=== PATIENT | female | born 1965 | race Hispanic/Latino ===

== ENCOUNTER → 2020-07-18 | Day surgery (SDC) | payer SELFPAY ==
[2020-07-17 13:34] VITALS: BMI 64.6
[~2020-07-18] MED LIST: Bupivacaine 0.25% HCL 30 ML VIAL ONE; Dexamethasone 20 MG/5 ML VIAL ONE; Fentanyl 100 MCG/2 ML VIAL ONE; HYDROcodone/Acetaminophen 5/325 mg Tablet ONE; HYDROmorphone 0.5 MG/0.5 ML SYRINGE ONE; HYDROmorphone 2 MG/ML VIAL SLOW IVP PRN; Lidocaine 1% PF 5 ML VIAL ONE; Lidocaine 1% w/Epinephrine 1:100K 20 ML VIAL ONE; Midazolam HCl 2 mg/2 ml Vial ONE; Morphine 4 MG/ML VIAL ONE; Ondansetron HCl/PF 4 MG/2 ML Vial IVP PRN; Ondansetron PF 4 MG/2 ML Vial ONE; PROPOFOL 200 MG/20 ML VIAL ONE; Promethazine HCl 25 MG/ML VIAL IM PRN; Promethazine HCl 25 MG/ML VIAL SLOW IVP PRN; Rocuronium Bromide 10 MG/ML (10ML VIAL) ONE; Rocuronium Bromide 50 MG/5 ML VIAL ONE; SUGAMMADEX SODIUM 200 MG/2 ML VIAL ONE; SUGAMMADEX SODIUM 500 MG/5 ML VIAL ONE; Succinylcholine Chloride 20 MG/ML 10 ml SYRINGE FS ONE
--- NOTE | 2020-07-18 17:54 | OP ---
DATE OF PROCEDURE: 07/18/2020 PREOPERATIVE DIAGNOSIS: Incisional hernia, large. POSTOPERATIVE DIAGNOSIS: Incisional hernia, large. PROCEDURE PERFORMED: [facility] laparoscopic incisional hernia repair with mesh, 10 x [address] ANESTHESIA: General. ESTIMATED BLOOD LOSS: Minimal. COMPLICATIONS: None. SPECIMENS: None. FINDINGS: There were 3 hernia defects in continuity in the upper midline. DESCRIPTION OF PROCEDURE: The patient was taken to the operating room and laid supine on the operating room table. After general anesthetic was obtained, a Trevizo was placed. The abdomen was prepped and draped in a sterile fashion. Left subcostal 5-mm Optiview trocar placed in usual fashion and high-flow pneumoperitoneum was obtained. Left upper quadrant and right upper quadrant 8-mm robot ports were placed. All ports were docked to the robot. The patient had transverse colon and significant amount of omentum in the hernia. This was able to be bluntly slowly dissected out of the hernia defect. Care was taken to avoid injury to the colon or intra-abdominal contents. After significant amount of time of blunt and sharp dissection, all the contents in the hernia were able to be reduced. The peritoneum was taken down, exposing the posterior fascia. A #1 V-Loc suture was used to close the fascial defects in a continuous fashion. There were 3 defects in line in the upper midline. These were able to be closed completely. A [address] mesh was marked and placed into the abdominal cavity. The exposed mesh part was placed up against the posterior fascia. The nonadherent barrier part was left down and exposed to the abdominal viscera. The needle from the V-Loc was used to hold the mesh up against the posterior abdominal wall, centered over the previous repair. A 2-0 V-Loc suture was then run in a circumferential fashion around the edge of the mesh, holding it to the posterior fascia. All needles were removed from the abdomen and accounted for. All port sites were infiltrated using local anesthetic. All ports were removed under camera visualization. Pneumoperitoneum was let down. PDS was used to close the fascial defect below and the subxiphoid location. All incisions were irrigated and closed using 4-0 Monocryl and Dermabond. The patient was sent to Recovery in stable condition. All instrument counts, needle counts, and lap counts were correct. Job ID: [id number]
== END ==
LOC: SDC 06:01
PROVIDERS: ATTEND Surgery
PROC: 0WUF4JZ Supplement Abdominal Wall with Synthetic Substitute, Percutaneous Endoscopic Approach (ICD-10-PCS; principal; 2020-07-18)
DX: K43.2 Incisional hernia without obstruction or gangrene (principal)
CPT/HCPCS: J0690; J1100; J1170; J2250; J2270; J2405; J2704; J3010; S0020

== ENCOUNTER 2021-04-25 20:01 | Inpatient (IN) | payer SELFPAY ==
[2021-04-25 20:38] LABS: #Lymphocytes 0.9 thou/uL (1.20-3.40); #Monocytes 0.3 thou/uL (0.11-0.59); #Neutrophils 7.2 thou/uL (1.40-6.50); %Lymphocytes 10.2 % (21.0-51.0); %Monocytes 4.1 % (0.0-10.0); %Neutrophils 85.7 % (42.0-75.0); Mean Corpuscular HGB CONC 34.6 g/dL (32.0-36.0); Mean Corpuscular Hemoglobin 29.9 pg (27.0-31.0); Mean Corpuscular Volume 86.3 fL (78.0-98.0); Platelet Count 256 thou/uL (130-400); RBC Distribution Width 13.5 % (11.5-14.5); Red Blood Cell (RBC) Count 5.01 mill/uL (4.20-5.40); White Blood Cell (WBC) Count 8.4 thou/uL (4.8-10.8)
[2021-04-25 21:03] LABS: ALT (SGPT) 53 U/L (8-55); AST (SGOT) 74 U/L (5-34); Albumin 3.7 g/dL (3.5-5.0); Alkaline Phosphatase 104 U/L (40-110); Anion Gap 15 mmol/L (10-20); BUN (Urea Nitrogen) 7 mg/dL (9.8-20.1); Bilirubin, Total 0.4 mg/dL (0.2-1.2); Calc. Creatinine Clearance 0 mL/min (70-130); Calcium 8.8 mg/dL (7.8-10.44); Carbon Dioxide 26 mmol/L (22-29); Chloride 97 mmol/L (98-107); Globulin 4.3 g/dL (2.4-3.5); Glucose 193 mg/dL (70-105); Potassium 4.7 mmol/L (3.5-5.1); Sodium 133 mmol/L (136-145)
[2021-04-25] MEDS ORDERED: cefTRIAXone\\ROCEPHIN 2 GM VIAL ONE (22:28)
[2021-04-25] MEDS ORDERED: Acetaminophen 500 MG TAB ONE (22:28)
[2021-04-25] MEDS ORDERED: Azithromycin 500 MG VIAL ONE (23:02)
[2021-04-25 23:48] LABS: SARS-CoV-2 NAA Rapid Test DETECTED (NotDetected)
[2021-04-26] MEDS ORDERED: Ondansetron PF 4 MG/2 ML Vial IVP PRN (01:04)
[2021-04-26] MEDS ORDERED: Enoxaparin Sodium 40 MG/0.4 ML SYRINGE SC SCH ×2 (01:30→09:00)
[2021-04-26] MEDS ORDERED: Dexamethasone 4 mg/ml Vial SLOW IVP SCH (01:30)
[2021-04-26] MEDS ORDERED: Enoxaparin Sodium 100 MG/ML SYRINGE SC SCH (01:30)
[2021-04-26 05:07] LABS: #Lymphocytes 1.1 thou/uL (1.20-3.40); #Monocytes 0.3 thou/uL (0.11-0.59); #Neutrophils 8.8 thou/uL (1.40-6.50); %Basophils 0.1 % (0.0-1.0); %Lymphocytes 10.9 % (21.0-51.0); %Monocytes 3.3 % (0.0-10.0); %Neutrophils 85.7 % (42.0-75.0); Hemoglobin 13.5 g/dL (12.0-16.0); Mean Corpuscular HGB CONC 33.4 g/dL (32.0-36.0); Mean Corpuscular Hemoglobin 28.9 pg (27.0-31.0); Mean Corpuscular Volume 86.5 fL (78.0-98.0); Mean Platelet Volume 7.2 fL (7.4-10.4); Platelet Count 266 thou/uL (130-400); RBC Distribution Width 13.4 % (11.5-14.5); Red Blood Cell (RBC) Count 4.67 mill/uL (4.20-5.40); White Blood Cell (WBC) Count 10.3 thou/uL (4.8-10.8)
[2021-04-26 05:21] LABS: Hemoglobin A1c 7.2 % (4.0-6.0)
[2021-04-26 05:35] LABS: ALT (SGPT) 51 U/L (8-55); AST (SGOT) 68 U/L (5-34); Albumin 3.5 g/dL (3.5-5.0); Alkaline Phosphatase 102 U/L (40-110); Anion Gap 13 mmol/L (10-20); BUN (Urea Nitrogen) 8 mg/dL (9.8-20.1); Bilirubin, Direct 0.2 mg/dL (0.1-0.3); Bilirubin, Total 0.3 mg/dL (0.2-1.2); CRP (Inflammatory) 9.89 mg/dL (= or < 0.5); Calc. Creatinine Clearance 185 mL/min (70-130); Calcium 8.7 mg/dL (7.8-10.44); Carbon Dioxide 27 mmol/L (22-29); Chloride 99 mmol/L (98-107); Glucose 237 mg/dL (70-105); Potassium 4.5 mmol/L (3.5-5.1); Protein, Total 7.6 g/dL (6.0-8.3); Sodium 134 mmol/L (136-145)
[2021-04-26] MEDS ORDERED: Dextrose 5% in Water 1,000 ML IV PRN (06:45)
[2021-04-26] MEDS ORDERED: Dextrose 50% Abboject 50 ML SYRINGE SLOW IVP PRN (06:45)
[2021-04-26] MEDS: Ascorbic Acid 500 mg Chewable Tablet PO SCH (07:36)
[2021-04-26] MEDS: Zinc Sulfate 220 MG CAP PO SCH (07:36)
[2021-04-26] MEDS: Dexamethasone 4 mg/ml Vial SLOW IVP SCH (07:36)
[2021-04-26] MEDS: HumaLOG 300 UNITS/3 ML VIAL SC PRN ×4 (07:38→21:15)
[2021-04-26] MEDS ORDERED: Famotidine 20 MG TAB PO SCH (09:00)
[2021-04-26] MEDS ORDERED: REMDESIVIR 200 MG in Sodium Chloride 0.9% 250 ML 210 ML IV SCH (10:15)
[2021-04-26] MEDS ORDERED: Iopamidol-370 76% 500 ML 1 ML ONE (10:15)
[2021-04-26] MEDS: Acetaminophen 325 MG TAB PO PRN ×2 (15:33→20:25)
[2021-04-26] MEDS: glipiZIDE 5 MG TAB PO SCH (15:33)
[2021-04-26] MEDS: Enoxaparin Sodium 40 MG/0.4 ML SYRINGE SC SCH (21:05)
[2021-04-26] MEDS: Cefepime 1 GM in Sodium Chloride 0.9% 100 ML IVPB SCH (23:21)
[2021-04-27] MEDS: Acetaminophen 325 MG TAB PO PRN ×3 (03:17→22:50)
[2021-04-27 05:54] LABS: ALT (SGPT) 45 U/L (8-55); AST (SGOT) 50 U/L (5-34); Albumin 3.3 g/dL (3.5-5.0); Alkaline Phosphatase 91 U/L (40-110); Anion Gap 15 mmol/L (10-20); BUN (Urea Nitrogen) 12 mg/dL (9.8-20.1); Bilirubin, Total 0.3 mg/dL (0.2-1.2); Calc. Creatinine Clearance 207 mL/min (70-130); Calcium 8.6 mg/dL (7.8-10.44); Carbon Dioxide 23 mmol/L (22-29); Chloride 101 mmol/L (98-107); Globulin 3.8 g/dL (2.4-3.5); Glucose 164 mg/dL (70-105); Potassium 4.2 mmol/L (3.5-5.1); Protein, Total 7.1 g/dL (6.0-8.3); Sodium 135 mmol/L (136-145)
[2021-04-27] MEDS: HumaLOG 300 UNITS/3 ML VIAL SC PRN ×2 (05:59→17:18)
[2021-04-27] MEDS: Ascorbic Acid 500 mg Chewable Tablet PO SCH (10:00)
[2021-04-27] MEDS: Dexamethasone 4 mg/ml Vial SLOW IVP SCH (10:00)
[2021-04-27] MEDS: Cholecalciferol (Vitamin D3) 400 UNITS TAB PO SCH (10:00)
[2021-04-27] MEDS: glipiZIDE 5 MG TAB PO SCH ×2 (10:00→16:00)
[2021-04-27] MEDS: Enoxaparin Sodium 40 MG/0.4 ML SYRINGE SC SCH ×2 (10:01→20:49)
[2021-04-27] MEDS: Cefepime 1 GM in Sodium Chloride 0.9% 100 ML IVPB SCH ×2 (10:01→22:37)
[2021-04-27] MEDS: Zinc Sulfate 220 MG CAP PO SCH (10:01)
[2021-04-27] MEDS: REMDESIVIR 100 MG in Sodium Chloride 0.9% 250 ML 230 ML IV SCH (11:03)
[2021-04-28 05:35] LABS: ALT (SGPT) 37 U/L (8-55); AST (SGOT) 30 U/L (5-34); Albumin 3.3 g/dL (3.5-5.0); Alkaline Phosphatase 98 U/L (40-110); Anion Gap 13 mmol/L (10-20); BUN (Urea Nitrogen) 16 mg/dL (9.8-20.1); Bilirubin, Total 0.4 mg/dL (0.2-1.2); CRP (Inflammatory) 2.95 mg/dL (= or < 0.5); Calc. Creatinine Clearance 202 mL/min (70-130); Calcium 8.9 mg/dL (7.8-10.44); Carbon Dioxide 27 mmol/L (22-29); Chloride 103 mmol/L (98-107); Globulin 3.8 g/dL (2.4-3.5); Glucose 161 mg/dL (70-105); Potassium 4.3 mmol/L (3.5-5.1); Protein, Total 7.1 g/dL (6.0-8.3); Sodium 139 mmol/L (136-145)
[2021-04-28] MEDS: HumaLOG 300 UNITS/3 ML VIAL SC PRN ×3 (06:15→20:38)
[2021-04-28] MEDS: Enoxaparin Sodium 40 MG/0.4 ML SYRINGE SC SCH ×2 (08:12→20:30)
[2021-04-28] MEDS: Cholecalciferol (Vitamin D3) 400 UNITS TAB PO SCH (08:12)
[2021-04-28] MEDS: glipiZIDE 5 MG TAB PO SCH ×2 (08:12→17:25)
[2021-04-28] MEDS: Ascorbic Acid 500 mg Chewable Tablet PO SCH (08:12)
[2021-04-28] MEDS: Zinc Sulfate 220 MG CAP PO SCH (08:13)
[2021-04-28] MEDS: Dexamethasone 4 mg/ml Vial SLOW IVP SCH (08:13)
[2021-04-28] MEDS: Acetaminophen 325 MG TAB PO PRN ×2 (10:48→18:20)
[2021-04-28] MEDS: Cefepime 1 GM in Sodium Chloride 0.9% 100 ML IVPB SCH (10:48)
[2021-04-28] MEDS: REMDESIVIR 100 MG in Sodium Chloride 0.9% 250 ML 230 ML IV SCH (11:31)
[2021-04-29] MEDS: Cefepime 1 GM in Sodium Chloride 0.9% 100 ML IVPB SCH ×3 (00:13→22:06)
[2021-04-29 04:59] LABS: ALT (SGPT) 29 U/L (8-55); AST (SGOT) 19 U/L (5-34); Albumin 3.2 g/dL (3.5-5.0); Alkaline Phosphatase 106 U/L (40-110); Anion Gap 13 mmol/L (10-20); BUN (Urea Nitrogen) 14 mg/dL (9.8-20.1); Bilirubin, Total 0.4 mg/dL (0.2-1.2); CRP (Inflammatory) 2.24 mg/dL (= or < 0.5); Calc. Creatinine Clearance 217 mL/min (70-130); Calcium 8.6 mg/dL (7.8-10.44); Carbon Dioxide 26 mmol/L (22-29); Chloride 104 mmol/L (98-107); Globulin 3.7 g/dL (2.4-3.5); Glucose 128 mg/dL (70-105); Potassium 3.8 mmol/L (3.5-5.1); Protein, Total 6.9 g/dL (6.0-8.3); Sodium 139 mmol/L (136-145)
[2021-04-29] MEDS: Enoxaparin Sodium 40 MG/0.4 ML SYRINGE SC SCH ×2 (07:26→22:00)
[2021-04-29] MEDS: Dexamethasone 4 mg/ml Vial SLOW IVP SCH ×2 (07:26→22:00)
[2021-04-29] MEDS: Zinc Sulfate 220 MG CAP PO SCH (07:27)
[2021-04-29] MEDS: glipiZIDE 5 MG TAB PO SCH ×2 (07:27→15:32)
[2021-04-29] MEDS: Ascorbic Acid 500 mg Chewable Tablet PO SCH (07:27)
[2021-04-29] MEDS: Cholecalciferol (Vitamin D3) 400 UNITS TAB PO SCH (07:27)
[2021-04-29] MEDS: Ivermectin 3 MG TAB PO SCH (10:50)
[2021-04-29] MEDS: REMDESIVIR 100 MG in Sodium Chloride 0.9% 250 ML 230 ML IV SCH (10:50)
[2021-04-29] MEDS: Acetaminophen 325 MG TAB PO PRN (15:32)
[2021-04-29] MEDS: HumaLOG 300 UNITS/3 ML VIAL SC PRN ×2 (15:52→22:00)
[2021-04-29] MEDS ORDERED: Lantus 1000 UNITS/10 ML VIAL SC SCH (21:00)
[2021-04-30 05:31] LABS: ALT (SGPT) 26 U/L (8-55); AST (SGOT) 20 U/L (5-34); Albumin 3.3 g/dL (3.5-5.0); Alkaline Phosphatase 117 U/L (40-110); Anion Gap 16 mmol/L (10-20); BUN (Urea Nitrogen) 13 mg/dL (9.8-20.1); Bilirubin, Total 0.5 mg/dL (0.2-1.2); CRP (Inflammatory) 3.88 mg/dL (= or < 0.5); Calc. Creatinine Clearance 208 mL/min (70-130); Calcium 8.6 mg/dL (7.8-10.44); Carbon Dioxide 20 mmol/L (22-29); Chloride 104 mmol/L (98-107); Globulin 3.8 g/dL (2.4-3.5); Glucose 226 mg/dL (70-105); Potassium 4.5 mmol/L (3.5-5.1); Protein, Total 7.1 g/dL (6.0-8.3); Sodium 135 mmol/L (136-145)
[2021-04-30] MEDS: HumaLOG 300 UNITS/3 ML VIAL SC PRN ×3 (06:09→18:18)
[2021-04-30] MEDS: Zinc Sulfate 220 MG CAP PO SCH (07:59)
[2021-04-30] MEDS: Cholecalciferol (Vitamin D3) 400 UNITS TAB PO SCH (07:59)
[2021-04-30] MEDS: Enoxaparin Sodium 40 MG/0.4 ML SYRINGE SC SCH ×2 (07:59→21:10)
[2021-04-30] MEDS: Ascorbic Acid 500 mg Chewable Tablet PO SCH (07:59)
[2021-04-30] MEDS: glipiZIDE 5 MG TAB PO SCH ×2 (07:59→16:20)
[2021-04-30] MEDS: Dexamethasone 4 mg/ml Vial SLOW IVP SCH ×2 (08:00→21:10)
[2021-04-30] MEDS: REMDESIVIR 100 MG in Sodium Chloride 0.9% 250 ML 230 ML IV SCH (10:22)
[2021-04-30] MEDS: Ivermectin 3 MG TAB PO SCH (11:32)
[2021-04-30] MEDS: Cefepime 1 GM in Sodium Chloride 0.9% 100 ML IVPB SCH ×2 (11:35→22:39)
[2021-04-30] MEDS: Acetaminophen 325 MG TAB PO PRN ×2 (13:35→22:38)
[2021-04-30] MEDS ORDERED: Lantus 1000 UNITS/10 ML VIAL SC SCH (21:00)
[2021-05-01] MEDS: HumaLOG 300 UNITS/3 ML VIAL SC PRN ×3 (06:07→17:38)
[2021-05-01] MEDS: Cholecalciferol (Vitamin D3) 400 UNITS TAB PO SCH (08:21)
[2021-05-01] MEDS: Ascorbic Acid 500 mg Chewable Tablet PO SCH (08:21)
[2021-05-01] MEDS: Enoxaparin Sodium 40 MG/0.4 ML SYRINGE SC SCH ×2 (08:21→21:31)
[2021-05-01] MEDS: Zinc Sulfate 220 MG CAP PO SCH (08:21)
[2021-05-01] MEDS: glipiZIDE 5 MG TAB PO SCH ×2 (08:22→17:38)
[2021-05-01] MEDS: Dexamethasone 4 mg/ml Vial SLOW IVP SCH ×2 (08:22→21:31)
[2021-05-01 10:36] VITALS: BMI 59.1
[2021-05-01] MEDS ORDERED: Fluticasone Propionate Nasal Spray 16 gm Bottle NASAL SCH (10:45)
[2021-05-01] MEDS: Ivermectin 3 MG TAB PO SCH (12:33)
[2021-05-01] MEDS: Lantus 1000 UNITS/10 ML VIAL SC SCH (21:29)
[2021-05-01] MEDS: Fluticasone Propionate Nasal Spray 16 gm Bottle NASAL SCH (21:29)
[2021-05-01] MEDS: Acetaminophen 325 MG TAB PO PRN (23:12)
[2021-05-02 05:47] LABS: ALT (SGPT) 20 U/L (8-55); AST (SGOT) 11 U/L (5-34); Albumin 3.2 g/dL (3.5-5.0); Alkaline Phosphatase 101 U/L (40-110); Anion Gap 12 mmol/L (10-20); BUN (Urea Nitrogen) 20 mg/dL (9.8-20.1); Bilirubin, Total 0.5 mg/dL (0.2-1.2); CRP (Inflammatory) 0.93 mg/dL (= or < 0.5); Calc. Creatinine Clearance 175 mL/min (70-130); Calcium 8.9 mg/dL (7.8-10.44); Carbon Dioxide 25 mmol/L (22-29); Chloride 103 mmol/L (98-107); Globulin 3.6 g/dL (2.4-3.5); Glucose 264 mg/dL (70-105); Potassium 4.9 mmol/L (3.5-5.1); Protein, Total 6.8 g/dL (6.0-8.3); Sodium 135 mmol/L (136-145)
[2021-05-02] MEDS: HumaLOG 300 UNITS/3 ML VIAL SC PRN ×4 (06:03→21:30)
[2021-05-02] MEDS: Cholecalciferol (Vitamin D3) 400 UNITS TAB PO SCH (08:00)
[2021-05-02] MEDS: glipiZIDE 5 MG TAB PO SCH ×2 (08:00→16:28)
[2021-05-02] MEDS: Ascorbic Acid 500 mg Chewable Tablet PO SCH (08:00)
[2021-05-02] MEDS: Dexamethasone 4 mg/ml Vial SLOW IVP SCH (08:01)
[2021-05-02] MEDS: Enoxaparin Sodium 40 MG/0.4 ML SYRINGE SC SCH ×2 (08:01→21:27)
[2021-05-02] MEDS: Fluticasone Propionate Nasal Spray 16 gm Bottle NASAL SCH ×2 (08:02→21:28)
[2021-05-02] MEDS: Zinc Sulfate 220 MG CAP PO SCH (08:02)
[2021-05-02] MEDS ORDERED: Fluticasone Propionate Nasal Spray 16 gm Bottle NASAL SCH (09:00)
[2021-05-02] MEDS: Ivermectin 3 MG TAB PO SCH (12:04)
[2021-05-02] MEDS: Lantus 1000 UNITS/10 ML VIAL SC SCH (21:29)
[2021-05-02] MEDS: Acetaminophen 325 MG TAB PO PRN (21:50)
[2021-05-03 05:22] LABS: ALT (SGPT) 15 U/L (8-55); AST (SGOT) 11 U/L (5-34); Albumin 3.2 g/dL (3.5-5.0); Alkaline Phosphatase 93 U/L (40-110); Anion Gap 12 mmol/L (10-20); BUN (Urea Nitrogen) 20 mg/dL (9.8-20.1); Bilirubin, Total 0.5 mg/dL (0.2-1.2); CRP (Inflammatory) 0.52 mg/dL (= or < 0.5); Calc. Creatinine Clearance 220 mL/min (70-130); Calcium 8.8 mg/dL (7.8-10.44); Carbon Dioxide 22 mmol/L (22-29); Chloride 104 mmol/L (98-107); Globulin 3.4 g/dL (2.4-3.5); Glucose 128 mg/dL (70-105); Potassium 4.2 mmol/L (3.5-5.1); Protein, Total 6.6 g/dL (6.0-8.3); Sodium 134 mmol/L (136-145)
[2021-05-03] MEDS: Fluticasone Propionate Nasal Spray 16 gm Bottle NASAL SCH ×2 (08:01→21:35)
[2021-05-03] MEDS: glipiZIDE 5 MG TAB PO SCH ×2 (08:01→15:33)
[2021-05-03] MEDS: Cholecalciferol (Vitamin D3) 400 UNITS TAB PO SCH (08:01)
[2021-05-03] MEDS: Ascorbic Acid 500 mg Chewable Tablet PO SCH (08:01)
[2021-05-03] MEDS: Zinc Sulfate 220 MG CAP PO SCH (08:01)
[2021-05-03] MEDS: Enoxaparin Sodium 40 MG/0.4 ML SYRINGE SC SCH ×2 (08:01→21:33)
[2021-05-03] MEDS: Dexamethasone 4 mg/ml Vial SLOW IVP SCH (08:02)
[2021-05-03] MEDS: HumaLOG 300 UNITS/3 ML VIAL SC PRN (16:02)
[2021-05-03] MEDS: Lantus 1000 UNITS/10 ML VIAL SC SCH (21:33)
[2021-05-04 05:36] LABS: ALT (SGPT) 16 U/L (8-55); AST (SGOT) 11 U/L (5-34); Albumin 3.3 g/dL (3.5-5.0); Alkaline Phosphatase 91 U/L (40-110); Anion Gap 13 mmol/L (10-20); BUN (Urea Nitrogen) 17 mg/dL (9.8-20.1); Bilirubin, Total 0.6 mg/dL (0.2-1.2); CRP (Inflammatory) 0.83 mg/dL (= or < 0.5); Calc. Creatinine Clearance 210 mL/min (70-130); Calcium 8.9 mg/dL (7.8-10.44); Carbon Dioxide 21 mmol/L (22-29); Chloride 103 mmol/L (98-107); Globulin 3.6 g/dL (2.4-3.5); Glucose 145 mg/dL (70-105); Potassium 4.3 mmol/L (3.5-5.1); Protein, Total 6.9 g/dL (6.0-8.3); Sodium 133 mmol/L (136-145)
[2021-05-04] MEDS: Ascorbic Acid 500 mg Chewable Tablet PO SCH (09:16)
[2021-05-04] MEDS: Dexamethasone 4 mg/ml Vial SLOW IVP SCH (09:16)
[2021-05-04] MEDS: Cholecalciferol (Vitamin D3) 400 UNITS TAB PO SCH (09:16)
[2021-05-04] MEDS: glipiZIDE 5 MG TAB PO SCH ×2 (09:16→16:20)
[2021-05-04] MEDS: Enoxaparin Sodium 40 MG/0.4 ML SYRINGE SC SCH ×2 (09:16→19:55)
[2021-05-04] MEDS: Zinc Sulfate 220 MG CAP PO SCH (09:17)
[2021-05-04] MEDS: Fluticasone Propionate Nasal Spray 16 gm Bottle NASAL SCH ×2 (10:40→19:55)
[2021-05-04] MEDS: HumaLOG 300 UNITS/3 ML VIAL SC PRN ×3 (12:29→20:04)
[2021-05-04] MEDS: Lantus 1000 UNITS/10 ML VIAL SC SCH (19:55)
[2021-05-04] MEDS: Acetaminophen 325 MG TAB PO PRN (22:51)
[2021-05-05 05:46] LABS: #Basophils 0.1 thou/uL (0.0-0.2); #Eosinphils 0.1 thou/uL (0.0-0.7); #Lymphocytes 1.6 thou/uL (1.20-3.40); #Monocytes 0.4 thou/uL (0.11-0.59); %Basophils 0.9 % (0.0-1.0); %Eosinophils 1.4 % (0.0-10.0); %Lymphocytes 15.8 % (21.0-51.0); %Monocytes 3.6 % (0.0-10.0); %Neutrophils 78.3 % (42.0-75.0); Hemoglobin 15.1 g/dL (12.0-16.0); Mean Corpuscular HGB CONC 34.2 g/dL (32.0-36.0); Mean Corpuscular Hemoglobin 29.6 pg (27.0-31.0); Mean Corpuscular Volume 86.6 fL (78.0-98.0); Mean Platelet Volume 7.2 fL (7.4-10.4); Platelet Count 383 thou/uL (130-400); RBC Distribution Width 14.3 % (11.5-14.5); Red Blood Cell (RBC) Count 5.11 mill/uL (4.20-5.40); White Blood Cell (WBC) Count 10.2 thou/uL (4.8-10.8)
[2021-05-05 06:12] LABS: ALT (SGPT) 14 U/L (8-55); AST (SGOT) 11 U/L (5-34); Albumin 3.4 g/dL (3.5-5.0); Alkaline Phosphatase 87 U/L (40-110); Anion Gap 14 mmol/L (10-20); BUN (Urea Nitrogen) 17 mg/dL (9.8-20.1); Bilirubin, Total 0.6 mg/dL (0.2-1.2); Calc. Creatinine Clearance 204 mL/min (70-130); Calcium 9.1 mg/dL (7.8-10.44); Carbon Dioxide 22 mmol/L (22-29); Chloride 103 mmol/L (98-107); Globulin 3.7 g/dL (2.4-3.5); Glucose 146 mg/dL (70-105); Potassium 4.4 mmol/L (3.5-5.1); Protein, Total 7.1 g/dL (6.0-8.3); Sodium 135 mmol/L (136-145)
[2021-05-05] MEDS: Ascorbic Acid 500 mg Chewable Tablet PO SCH (10:24)
[2021-05-05] MEDS: Cholecalciferol (Vitamin D3) 400 UNITS TAB PO SCH (10:24)
[2021-05-05] MEDS: glipiZIDE 5 MG TAB PO SCH ×2 (10:24→18:43)
[2021-05-05] MEDS: Dexamethasone 4 mg/ml Vial SLOW IVP SCH (10:24)
[2021-05-05] MEDS: Enoxaparin Sodium 40 MG/0.4 ML SYRINGE SC SCH (10:25)
[2021-05-05] MEDS: Zinc Sulfate 220 MG CAP PO SCH (10:25)
[2021-05-05] MEDS: Fluticasone Propionate Nasal Spray 16 gm Bottle NASAL SCH (10:36)
[2021-05-05] MEDS ORDERED: metFORMIN 500 MG TAB PO SCH (17:00)
[2021-05-05 18:34] VITALS: BP 119/82; TEMP 98.6
== END 2021-05-05 19:10 | disposition home or self-care (01) | DRG 871 ==
LOC: ERS 20:01 → 2SW 21:54
PROVIDERS: ADMIT Internal Medicine; ATTEND Internal Medicine
PROC: 8E0ZXY6 Isolation (ICD-10-PCS; principal; 2021-04-25)
PROC: XW033E5 Introduction of Remdesivir Anti-infective into Peripheral Vein, Percutaneous Approach, New Technology Group 5 (ICD-10-PCS; 2021-04-26)
DX: A41.89 Other specified sepsis (principal); U07.1 COVID-19; J96.01 Acute respiratory failure with hypoxia; J12.82 Pneumonia due to coronavirus disease 2019; E87.1 Hypo-osmolality and hyponatremia; Z68.44 Body mass index [BMI] 60.0-69.9, adult; E66.01 Morbid (severe) obesity due to excess calories; E11.65 Type 2 diabetes mellitus with hyperglycemia; E88.09 Other disorders of plasma-protein metabolism, not elsewhere classified; Z90.89 Acquired absence of other organs; Z98.890 Other specified postprocedural states; Z79.899 Other long term (current) drug therapy; Z87.891 Personal history of nicotine dependence; Z83.3 Family history of diabetes mellitus; Z82.49 Family history of ischemic heart disease and other diseases of the circulatory system
CPT/HCPCS: 0240U; 36415; 36416; 71045; 71275; 80048; 80053; 80076; 82728; 83036; 83605; 83880; 85025; 85379; 86140; 87040; 87149; 94760; 96365; 96375; J0456; J0692; J0696; J1100; J1650; J1815; J3490; J7050; Q9967

== ENCOUNTER 2023-09-09 11:14 | Inpatient (IN) | payer SELFPAY ==
[2023-09-09] MEDS ORDERED: Cefepime 2 GM VIAL ONE (11:51)
[2023-09-09] MEDS ORDERED: Acetaminophen 500 MG TAB ONE (11:51)
[2023-09-09] MEDS ORDERED: Ondansetron PF 4 MG/2 ML Vial ONE (11:51)
[2023-09-09 12:03] LABS: #Basophils 0.1 thou/uL (0.0-0.2); #Eosinphils 0.1 thou/uL (0.0-0.7); #Monocytes 0.6 thou/uL (0.11-0.59); #Neutrophils 12.1 thou/uL (1.40-6.50); %Basophils 0.3 % (0.0-1.0); %Eosinophils 0.5 % (0.0-10.0); %Lymphocytes 14.2 % (21.0-51.0); %Monocytes 4.1 % (0.0-10.0); %Neutrophils 80.2 % (42.0-75.0); Hematocrit 34.8 % (36.0-47.0); Hemoglobin 12.3 g/dL (12.0-16.0); Mean Corpuscular HGB CONC 35.3 g/dL (32.0-36.0); Mean Corpuscular Hemoglobin 28.6 pg (27.0-31.0); Mean Corpuscular Volume 80.9 fl (78.0-98.0); Mean Platelet Volume 9.1 fL (7.4-10.4); Platelet Count 542 10x3/uL (130-400); RBC Distribution Width 14.4 % (11.5-14.5); White Blood Cell (WBC) Count 15.1 10x3/uL (4.8-10.8)
[2023-09-09 12:27] LABS: ALT (SGPT) 8 U/L (8-55); AST (SGOT) 9 U/L (5-34); Albumin 4.1 g/dL (3.5-5.0); Alkaline Phosphatase 97 U/L (40-110); Anion Gap 16 mmol/L (10-20); BUN (Urea Nitrogen) 11 mg/dL (9.8-20.1); Bilirubin, Total 0.3 mg/dL (0.2-1.2); Calc. Creatinine Clearance 0 mL/min (70-130); Calcium 8.7 mg/dL (7.8-10.44); Carbon Dioxide 19 mmol/L (22-29); Chloride 105 mmol/L (98-107); Estimated GFR 82; Globulin 3.1 g/dL (2.4-3.5); Glucose 155 mg/dL (70-105); Potassium 3.3 mmol/L (3.5-5.1); Protein, Total 7.2 g/dL (6.0-8.3); Sodium 137 mmol/L (136-145)
[2023-09-09] MEDS ORDERED: Iopamidol-370 76% 500 ML MDV (1 ML CHARGE) ONE (13:30)
[2023-09-09] MEDS ORDERED: Morphine 4 MG/ML VIAL ONE (14:18)
[2023-09-09 14:32] LABS: Bacteria/HPF 2+ HPF (None Seen); Bilirubin Negative (Negative); Blood, Urine Negative (Negative); CAUTI Indications for Culture Dysuria,urgency,freq; Clarity Clear (Clear); Glucose, Urine (Dipstick) Normal (Negative); Ketone, Urine Negative (Negative); Leukocyte Negative Leu/uL (Negative); Nitrite 2+ (Negative); Protein, Urine (Dipstick) 70 mg/dL (Neg-Trace); RBC/HPF 0-3 HPF (0-3); Urobilinogen Normal mg/dL (Less than 2); WBC/HPF 0-3 HPF (0-3)
[2023-09-09 14:34] LABS: Specific Gravity, Urine 1.015 (1.002-1.036)
[2023-09-09 14:35] LABS: Urine Culture Reflex No No
[2023-09-09] MEDS ORDERED: Ondansetron ODT 4 MG TAB PO PRN (15:23)
[2023-09-09] MEDS ORDERED: Acetaminophen 325 MG TAB PO PRN (15:23)
[2023-09-09] MEDS ORDERED: Glucagon 1 MG/ML KIT IM PRN (15:25)
[2023-09-09] MEDS ORDERED: Dextrose 5% in Water 1,000 ML IV PRN (15:25)
[2023-09-09] MEDS ORDERED: Dextrose 50% Abboject 50 ML SYRINGE SLOW IVP PRN (15:25)
[2023-09-09] MEDS ORDERED: HumaLOG 300 UNITS/3 ML VIAL SC PRN ×2 (15:25)
[2023-09-09] MEDS ORDERED: Potassium Chloride 20 MEQ TAB PO SCH (15:30)
[2023-09-09] MEDS ORDERED: Potassium Chloride 20 MEQ TAB ONE (15:34)
[2023-09-09 16:02] VITALS: BMI 56.7
[2023-09-09] MEDS ORDERED: VANCOMYCIN IVPB PRN (16:43)
[2023-09-09] MEDS ORDERED: [UNRECOGNIZED DRUG - OTHER] IVPB PRN (16:43)
[2023-09-09] MEDS: HYDROcodone/Acetaminophen 5/325 mg Tablet PO PRN (18:39)
[2023-09-09] MEDS: Lactated Ringer's 1,000 ML IV SCH (18:45)
[2023-09-09] MEDS: Heparin 5,000 UNITS/ML VIAL SC SCH (22:09)
[2023-09-09] MEDS: Famotidine 20 MG TAB PO SCH (22:09)
[2023-09-10] MEDS: Cefepime 1 GM in Sodium Chloride 0.9% 100 ML IVPB SCH ×2 (00:53→12:20)
[2023-09-10] MEDS: HYDROcodone/Acetaminophen 5/325 mg Tablet PO PRN ×4 (01:32→20:12)
[2023-09-10] MEDS: Vancomycin (BATCH) 1.5 GM in Premix 1 BAG IVPB SCH ×2 (02:14→15:20)
[2023-09-10 05:35] LABS: #Eosinphils 0.2 thou/uL (0.0-0.7); #Monocytes 0.7 thou/uL (0.11-0.59); #Neutrophils 7.2 thou/uL (1.40-6.50); %Basophils 0.4 % (0.0-1.0); %Eosinophils 1.9 % (0.0-10.0); %Lymphocytes 19.7 % (21.0-51.0); %Monocytes 6.5 % (0.0-10.0); %Neutrophils 71.2 % (42.0-75.0); Hematocrit 30.6 % (36.0-47.0); Hemoglobin 10.6 g/dL (12.0-16.0); Mean Corpuscular HGB CONC 34.6 g/dL (32.0-36.0); Mean Corpuscular Hemoglobin 28.6 pg (27.0-31.0); Mean Corpuscular Volume 82.7 fl (78.0-98.0); Mean Platelet Volume 9.1 fL (7.4-10.4); Platelet Count 447 10x3/uL (130-400); RBC Distribution Width 14.5 % (11.5-14.5); White Blood Cell (WBC) Count 10.1 10x3/uL (4.8-10.8)
[2023-09-10 06:02] LABS: Anion Gap 12 mmol/L (10-20); BUN (Urea Nitrogen) 7 mg/dL (9.8-20.1); Calc. Creatinine Clearance 183 mL/min (70-130); Calcium 8.1 mg/dL (7.8-10.44); Carbon Dioxide 22 mmol/L (22-29); Chloride 109 mmol/L (98-107); Estimated GFR 102; Glucose 92 mg/dL (70-105); Potassium 2.8 mmol/L (3.5-5.1); Sodium 140 mmol/L (136-145)
[2023-09-10] MEDS: Lactated Ringer's 1,000 ML IV SCH (06:40)
[2023-09-10] MEDS ORDERED: Potassium Chloride 20 MEQ TAB PO SCH (08:15)
[2023-09-10] MEDS: Famotidine 20 MG TAB PO SCH ×2 (11:10→20:12)
[2023-09-10] MEDS: Heparin 5,000 UNITS/ML VIAL SC SCH ×2 (11:11→20:12)
[2023-09-10 12:11] LABS: Magnesium 1.2 mg/dL (1.6-2.6)
[2023-09-10] MEDS: Potassium Chloride 20 MEQ in Premix 1 BAG IVPB SCH (12:21)
[2023-09-10] MEDS ORDERED: Magnesium 2 GM/50 ML(in water) 2 GM in Premix 1 BAG IVPB SCH (14:45)
[2023-09-10] MEDS: cefTRIAXone\\ROCEPHIN 2 GM in Sodium Chloride 0.9% 100 ML IVPB SCH (18:41)
[2023-09-11 01:41] LABS: #Basophils 0.1 thou/uL (0.0-0.2); #Eosinphils 0.3 thou/uL (0.0-0.7); #Monocytes 0.7 thou/uL (0.11-0.59); #Neutrophils 7.2 thou/uL (1.40-6.50); %Basophils 0.5 % (0.0-1.0); %Eosinophils 3.1 % (0.0-10.0); %Lymphocytes 21.6 % (21.0-51.0); %Monocytes 6.4 % (0.0-10.0); %Neutrophils 68.1 % (42.0-75.0); Hematocrit 31.9 % (36.0-47.0); Hemoglobin 11.1 g/dL (12.0-16.0); Mean Corpuscular HGB CONC 34.8 g/dL (32.0-36.0); Mean Corpuscular Volume 83.3 fl (78.0-98.0); Mean Platelet Volume 8.7 fL (7.4-10.4); Platelet Count 452 10x3/uL (130-400); RBC Distribution Width 14.8 % (11.5-14.5); Red Blood Cell (RBC) Count 3.83 mill/uL (4.20-5.40); White Blood Cell (WBC) Count 10.5 10x3/uL (4.8-10.8)
[2023-09-11] MEDS: HYDROcodone/Acetaminophen 5/325 mg Tablet PO PRN ×3 (01:44→17:04)
[2023-09-11 02:22] LABS: Anion Gap 15 mmol/L (10-20); BUN (Urea Nitrogen) 6 mg/dL (9.8-20.1); Calc. Creatinine Clearance 171 mL/min (70-130); Calcium 8.4 mg/dL (7.8-10.44); Carbon Dioxide 20 mmol/L (22-29); Chloride 109 mmol/L (98-107); Estimated GFR 95; Glucose 128 mg/dL (70-105); Magnesium 1.7 mg/dL (1.6-2.6); Potassium 3.2 mmol/L (3.5-5.1); Sodium 141 mmol/L (136-145)
[2023-09-11] MEDS ORDERED: Magnesium 2 GM/50 ML(in water) 2 GM in Premix 1 BAG IVPB SCH (08:30)
[2023-09-11] MEDS: Potassium Chloride 20 MEQ in Premix 1 BAG IVPB SCH ×3 (09:31→15:00)
[2023-09-11] MEDS: Lactated Ringer's 1,000 ML IV SCH ×3 (09:31→20:08)
[2023-09-11] MEDS: Famotidine 20 MG TAB PO SCH ×2 (10:18→19:59)
[2023-09-11] MEDS: Heparin 5,000 UNITS/ML VIAL SC SCH ×2 (10:18→19:59)
[2023-09-11] MEDS ORDERED: HumaLOG 300 UNITS/3 ML VIAL SC PRN (10:54)
[2023-09-11 13:17] LABS: Campy jejuni + coli by PCR Negative (Negative); STEC Shiga Toxin 1+2 Negative (Negative); Salmonella spp. by PCR Negative (Negative); Shigella spp + EIEC by PCR Negative (Negative)
[2023-09-11] MEDS: cefTRIAXone\\ROCEPHIN 2 GM in Sodium Chloride 0.9% 100 ML IVPB SCH (18:50)
[2023-09-12 08:00] LABS: #Basophils 0.1 thou/uL (0.0-0.2); #Eosinphils 0.5 thou/uL (0.0-0.7); #Monocytes 0.4 thou/uL (0.11-0.59); #Neutrophils 5.6 thou/uL (1.40-6.50); %Basophils 0.6 % (0.0-1.0); %Eosinophils 5.4 % (0.0-10.0); %Lymphocytes 22.6 % (21.0-51.0); %Monocytes 4.5 % (0.0-10.0); %Neutrophils 66.4 % (42.0-75.0); Hematocrit 31.2 % (36.0-47.0); Hemoglobin 10.7 g/dL (12.0-16.0); Mean Corpuscular HGB CONC 34.3 g/dL (32.0-36.0); Mean Corpuscular Hemoglobin 28.9 pg (27.0-31.0); Mean Corpuscular Volume 84.3 fl (78.0-98.0); Mean Platelet Volume 8.9 fL (7.4-10.4); Platelet Count 421 10x3/uL (130-400); White Blood Cell (WBC) Count 8.4 10x3/uL (4.8-10.8)
[2023-09-12 08:24] LABS: Anion Gap 13 mmol/L (10-20); BUN (Urea Nitrogen) 5 mg/dL (9.8-20.1); Calc. Creatinine Clearance 166 mL/min (70-130); Calcium 8.2 mg/dL (7.8-10.44); Carbon Dioxide 24 mmol/L (22-29); Chloride 108 mmol/L (98-107); Estimated GFR 92; Glucose 117 mg/dL (70-105); Potassium 3.2 mmol/L (3.5-5.1); Sodium 142 mmol/L (136-145)
[2023-09-12] MEDS: Famotidine 20 MG TAB PO SCH ×2 (08:48→19:43)
[2023-09-12] MEDS: Heparin 5,000 UNITS/ML VIAL SC SCH ×2 (08:48→19:43)
[2023-09-12] MEDS ORDERED: Potassium Bicarbonate/Cit Ac 20 MEQ TAB PO SCH (09:30)
[2023-09-12] MEDS ORDERED: Magnesium Oxide 400 MG TAB PO SCH (09:30)
[2023-09-12] MEDS: HYDROcodone/Acetaminophen 5/325 mg Tablet PO PRN (16:35)
[2023-09-12] MEDS: cefTRIAXone\\ROCEPHIN 2 GM in Sodium Chloride 0.9% 100 ML IVPB SCH (17:32)
[2023-09-13 05:02] VITALS: TEMP 98.3
[2023-09-13] MEDS: Famotidine 20 MG TAB PO SCH (09:08)
[2023-09-13] MEDS: Heparin 5,000 UNITS/ML VIAL SC SCH (09:08)
[2023-09-13] MEDS ORDERED: cefTRIAXone\\ROCEPHIN 2 GM in Sodium Chloride 0.9% 100 ML IVPB SCH (15:00)
[2023-09-13 15:36] VITALS: BP 124/73
== END 2023-09-13 16:25 | disposition home or self-care (01) | DRG 315 ==
LOC: ERS 11:14 → ERHOLD 14:29 → SURG B 17:59
PROVIDERS: ADMIT Hospitalist; ATTEND Hospitalist
PROC: 02HV33Z Insertion of Infusion Device into Superior Vena Cava, Percutaneous Approach (ICD-10-PCS; principal; 2023-09-13)
PROC: B5181ZA Fluoroscopy of Superior Vena Cava using Low Osmolar Contrast, Guidance (ICD-10-PCS; 2023-09-13)
PROC: B548ZZA Ultrasonography of Superior Vena Cava, Guidance (ICD-10-PCS; 2023-09-13)
DX: T82.7XXA Infection and inflammatory reaction due to other cardiac and vascular devices, implants and grafts, initial encounter (principal); E87.20 Acidosis, unspecified; T82.338A Leakage of other vascular grafts, initial encounter; L03.311 Cellulitis of abdominal wall; Z68.43 Body mass index [BMI] 50.0-59.9, adult; E66.01 Morbid (severe) obesity due to excess calories; E11.65 Type 2 diabetes mellitus with hyperglycemia; E87.6 Hypokalemia; D72.829 Elevated white blood cell count, unspecified; Z79.899 Other long term (current) drug therapy; Z98.890 Other specified postprocedural states; Z82.49 Family history of ischemic heart disease and other diseases of the circulatory system; Z83.3 Family history of diabetes mellitus; Z87.891 Personal history of nicotine dependence; E83.42 Hypomagnesemia
CPT/HCPCS: 36415; 36416; 36569; 74177; 80048; 80053; 80202; 81001; 83605; 83735; 85025; 87040; 87070; 87077; 87086; 87149; 87186; 87205; 87324; 87449; 87505; 93005; 96365; 96366; 96367; 96375; 97139; J0692; J0696; J1644; J2270; J2405; J3370; J3475; J3480; J3490; J7120; Q0162; Q9967